=== PATIENT | female | born 1965 | race Caucasian/White ===

== ENCOUNTER 2017-09-23 09:34 | Outpatient (CLI) | payer BC | END 2017-09-23 09:35 | disposition home or self-care (01) | LOC: BICMAMMO 09:34 | PROVIDERS: ATTEND Family Medicine | DX: Z12.31 Encounter for screening mammogram for malignant neoplasm of breast (principal); Z85.820 Personal history of malignant melanoma of skin | CPT/HCPCS: 77063; 77067 ==

== ENCOUNTER 2018-09-26 09:22 | Outpatient (CLI) | payer BC | END 2018-09-26 09:23 | disposition home or self-care (01) | LOC: BICMAMMO 09:22 | PROVIDERS: ATTEND Family Medicine | DX: Z12.31 Encounter for screening mammogram for malignant neoplasm of breast (principal); R92.8 Other abnormal and inconclusive findings on diagnostic imaging of breast; Z85.820 Personal history of malignant melanoma of skin | CPT/HCPCS: 77063; 77067 ==

== ENCOUNTER 2018-09-29 09:22 | Outpatient (CLI) | payer BC ==
--- NOTE | 2018-09-29 16:55 | ULT ---
LEFT BREAST ULTRASOUND 09/29/18 COMPARISON: Mammogram 09/29/18, 09/26/18. HISTORY: Architectural distortion seen in the 12 o'clock position of the left breast on screening mammography and diagnostic mammography. TECHNIQUE: Multiplanar claudio scale and color doppler images were obtained in a targeted ultrasound of the left br east. FINDINGS: No suspicious shadowing or architectural distortion are seen in the left breast. No solid masses are seen. IMPRESSION: The area of architectural distortion was not able to be seen with ultrasound. BIRADS 0: Incomplete: Need Additional Imaging Evaluation and/or Prior Mammograms for Comparison An MRI is recommended to evaluate for abnormal enhancement in this region of potential architectural distortion. POS: RODRIGUEZ
== END 2018-09-29 09:23 | disposition home or self-care (01) ==
LOC: BICMAMMO 09:22
PROVIDERS: ATTEND Family Medicine
DX: N63.20 Unspecified lump in the left breast, unspecified quadrant (principal); Z85.820 Personal history of malignant melanoma of skin
CPT/HCPCS: G0279

== ENCOUNTER 2018-10-17 08:20 | Outpatient (CLI) | payer BC ==
--- NOTE | 2018-10-17 10:49 | MRI ---
MRI BILATERAL BREASTS WITH AND WITHOUT CONTRAST: COMPARISON: Mammogram and ultrasound from 09/29/2018. Mammograms from 09/26/2018 and 09/23/2017. TECHNIQUE: Multiplanar, multisequence MR images were obtained of the bilateral breasts with and without IV contr ast. This exam is evaluated on the [facility] work station, and 3D MIP reformats and contrast-enhanced curves were generated on the [facility] work station. FINDINGS: Scattered fibroglandular breast tissue is present. No significant background parenchymal enhancement is seen. In the central aspect of the left breast, there is a 5 mm area of high T2 signal and enhan cement. This enhancement is type II plateau-type enhancement and corresponds to the mammographic abn ormality. This lesion is actually closer to the medial aspect of the breast, at approximately the 9 o'clock position rather than the 12 o'clock position, where the ultrasound was performed. No other abnormal area of enhancement is seen in either breast. No axillary adenopathy is seen. No internal mammary lymph nodes are identified. The visualized anterior liver and osseous structures are unremarkable. IMPRESSION: There is a suspicious enhancing nodule in the left breast, which corresponds to the mammographic abno rmality. BI-RADS category 4-Suspicious abnormality. A biopsy is recommended. A second look ultraso und at the 9 o'clock position of the left breast should be performed to evaluate for this 5 mm mass. If this lesion cannot be seen with seen with a second look ultrasound, then an MRI guided biopsy noe l need to be performed. POS: RODRIGUEZ
[2018-10-17] MEDS ORDERED: Gadobenate Dimeglumine 529 MG/1 ML (20ML VIAL) ONE (12:51)
== END 2018-10-17 08:21 | disposition home or self-care (01) ==
LOC: BICMRI 08:20
PROVIDERS: ATTEND Family Medicine
DX: R92.8 Other abnormal and inconclusive findings on diagnostic imaging of breast (principal)
CPT/HCPCS: 82565; A9577; C8908

== ENCOUNTER 2020-05-23 07:22 | Outpatient (CLI) | payer BC, OTHER ==
[2020-05-23 11:31] LABS: Hemoglobin 13.7 g/dL (12.0-16.0); Mean Corpuscular HGB CONC 32.2 g/dL (32.0-36.0); Mean Corpuscular Hemoglobin 28.4 pg (27.0-31.0); Mean Corpuscular Volume 88.3 fL (78.0-98.0); Mean Platelet Volume 8.5 fL (7.4-10.4); Platelet Count 351 thou/uL (130-400); RBC Distribution Width 12.5 % (11.5-14.5); Red Blood Cell (RBC) Count 4.82 mill/uL (4.20-5.40); White Blood Cell (WBC) Count 5.7 thou/uL (4.8-10.8)
[2020-05-23 17:50] LABS: SARS-CoV-2 MS2 Positive; SARS-CoV-2 N Gene Negative; SARS-CoV-2 S Gene Negative; SARS-CoV-2 by NAA Not Detected (NotDetected); SARS-CoV-2 orf1ab Negative
== END 2020-05-23 07:23 | disposition home or self-care (01) ==
LOC: LABBT 07:22
PROVIDERS: ATTEND Obstetrics & Gynecology
DX: Z01.812 Encounter for preprocedural laboratory examination (principal); Z20.828 Contact with and (suspected) exposure to other viral communicable diseases; N92.0 Excessive and frequent menstruation with regular cycle; Z85.3 Personal history of malignant neoplasm of breast
CPT/HCPCS: 85027; 87635; U0003

== ENCOUNTER 2020-05-27 05:58 | Day surgery (SDC) | payer BC ==
[2020-05-23 10:21] VITALS: BMI 45.4
[2020-05-27] MEDS ORDERED: Bupivacaine HCl 0.5%/Epinephrine 1:200,000/PF 30 ml Vial ONE ×2 (06:31→09:09)
[2020-05-27] MEDS ORDERED: Methylene Blue 50 MG/10 ML AMPUL ONE (06:31)
[2020-05-27] MEDS ORDERED: Fentanyl 100 MCG/2 ML VIAL ONE ×2 (06:33→11:07)
[2020-05-27] MEDS ORDERED: HYDROmorphone 0.5 MG/0.5 ML SYRINGE ONE (06:33)
[2020-05-27] MEDS ORDERED: Famotidine/PF 20 mg/2ml Vial ONE (06:35)
[2020-05-27] MEDS ORDERED: CeleCOXIB 100 MG CAP ONE (06:35)
[2020-05-27] MEDS ORDERED: Gabapentin 300 MG CAP ONE (06:35)
[2020-05-27] MEDS ORDERED: Midazolam HCl 2 mg/2 ml Vial ONE (07:24)
[2020-05-27] MEDS ORDERED: Ropivacaine 0.2% 550 ML 750 ML NERVE BLCK SCH (08:30)
[2020-05-27] MEDS ORDERED: Ropivacaine HCl/PF 750 ML in Premix Bag 1 BAG NERVE BLCK SCH (09:15)
[2020-05-27] MEDS ORDERED: Meperidine HCl/PF 25 MG/ML VIAL SLOW IVP PRN (09:48)
[2020-05-27] MEDS ORDERED: Ketorolac Tromethamine 30 MG/ML VIAL IVP PRN (09:48)
[2020-05-27] MEDS ORDERED: Promethazine HCl 25 MG/ML VIAL SLOW IVP PRN (09:48)
[2020-05-27] MEDS ORDERED: Ondansetron HCl/PF 4 MG/2 ML Vial IVP PRN (09:48)
[2020-05-27] MEDS ORDERED: HYDROmorphone 2 MG/ML VIAL SLOW IVP PRN (09:48)
[2020-05-27] MEDS ORDERED: Morphine 4 MG/ML VIAL SLOW IVP PRN (10:17)
[2020-05-27] MEDS ORDERED: traMADol HCl 50 MG TAB PO PRN (10:17)
[2020-05-27] MEDS ORDERED: Bisacodyl 10 MG SUPP PR PRN (10:17)
[2020-05-27] MEDS ORDERED: Ondansetron PF 4 MG/2 ML Vial IVP PRN (10:17)
[2020-05-27] MEDS ORDERED: diphenhydrAMINE 25 MG CAP PO PRN (10:17)
[2020-05-27] MEDS ORDERED: Simethicone Chewable 80 MG TAB PO PRN (10:17)
[2020-05-27] MEDS ORDERED: Promethazine HCl 25 MG/ML VIAL IM PRN (10:17)
[2020-05-27] MEDS ORDERED: HYDROcodone/Acetaminophen 5/325 mg Tablet PO PRN ×2 (10:17)
[2020-05-27] MEDS ORDERED: Zolpidem Tartrate 5 MG TAB PO PRN (10:17)
[2020-05-27] MEDS ORDERED: SUGAMMADEX SODIUM 200 MG/2 ML VIAL ONE (10:30)
[2020-05-27] MEDS ORDERED: Sodium Chloride 0.9% 1,000 ML IV SCH (10:30)
[2020-05-27] MEDS ORDERED: Rocuronium Bromide 10 MG/ML (10ML VIAL) ONE (10:47)
[2020-05-27] MEDS ORDERED: PROPOFOL 200 MG/20 ML VIAL ONE (10:47)
[2020-05-27] MEDS ORDERED: Lidocaine 1% PF 5 ML VIAL ONE (10:47)
[2020-05-27] MEDS ORDERED: Ondansetron PF 4 MG/2 ML Vial ONE ×2 (10:47→16:29)
[2020-05-27] MEDS ORDERED: Dexamethasone 20 MG/5 ML VIAL ONE (10:47)
[2020-05-27] MEDS ORDERED: Succinylcholine Chloride 20 MG/ML 10 ml SYRINGE FS ONE (10:47)
[2020-05-27] MEDS ORDERED: EPHEDRINE 25 MG/5 ML SYRINGE ONE (10:47)
[2020-05-27] MEDS ORDERED: Glycopyrrolate 0.2 MG/ML 5 ML SYRINGE ONE (10:47)
[2020-05-27] MEDS ORDERED: HYDROmorphone 2 MG/ML VIAL ONE (11:40)
[2020-05-27] MEDS ORDERED: Ketorolac Tromethamine 30 MG/ML VIAL IVP SCH (12:00)
[2020-05-27] MEDS ORDERED: HYDROcodone/Acetaminophen 5/325 mg Tablet ONE (13:28)
--- NOTE | 2020-05-27 16:27 | OP ---
DATE OF PROCEDURE: 05/27/2020 PREOPERATIVE DIAGNOSES: 1. Personal history of breast cancer. 2. History of menorrhagia. POSTOPERATIVE DIAGNOSES: 1. Personal history of breast cancer. 2. History of menorrhagia. PROCEDURES PERFORMED: Robotic-assisted total laparoscopic hysterectomy with bilateral salpingo-oophorectomy and ON-Q pump placement. SURGICAL LEAD: Sheila Carrasquillo PA-C. COMPLICATIONS: None. ESTIMATED BLOOD LOSS: 75 mL. ANESTHESIA: GETA. OPERATIVE FINDINGS: 1. Obesity. 2. Normal-appearing cervix and vaginal mucosa at the start of the case. 3. Enlarged uterus with normal fallopian tubes, and bilaterally normal-appearing ovaries. 4. Surgical cuff hemostatic. 5. Small 1.5 cm perineal laceration at the vaginal mucosa repaired at the end of the case. PROCEDURE IN DETAIL: The patient was taken back to the OR with IV fluids running. Once she was in the OR, general anesthesia was obtained. The patient was placed in dorsal supine position with the arms tucked at her side and her legs in low dorsal lithotomy position. The abdomen and vagina were prepped and draped in normal fashion for a laparoscopic hysterectomy. Surgeons were gowned and gloved. The bladder was drained and attached to a Nilam syringe for bladder manipulation during the case. An operative speculum was placed into the vagina with the cervix easily identified and grasped with a single-tooth tenaculum. The uterine sound was passed through the cervix and the uterus sounded to 8 cm. A [employer] manipulator was assembled with a 4 cm cup and an 8 cm tip and placed into the uterus and vagina in routine fashion for hysterectomy. The surgeon's gloves were changed and the attention was turned to the laparoscopic portion of the case. Beginning at the supraumbilical fold, local anesthesia was placed underneath the skin. A 12 mm skin incision was made with a scalpel. The subcutaneous tissue was bluntly dissected with a hemostat and a Veress needle was placed through this incision into the peritoneal cavity. Once the peritoneum was reached, it was insufflated without difficulty. The Veress needle was then removed. A 12 mm trocar was placed through the distended abdomen through the 12 mm skin incision without difficulty. The laparoscope was then placed through this trocar with the above findings noted. The patient was then placed in Trendelenburg position and in similar fashion, an 8 mm right lower quadrant and left lower quadrant ports were placed, a right upper quadrant 11 mm port was placed all under direct visualization without difficulty. When all 4 ports were placed, the robot was docked to the patient's bedside. The instruments were placed under direct visualization through the trocars and the anatomy was inspected. Beginning on the patient's left side, the left adnexa was grasped and elevated away from the pelvic sidewall. The left ureter was noted to be running away from the IP ligament. The IP ligament was cauterized and transected using a combination of bipolar and monopolar cautery on the patient's right side. The left ovary and the left tube were transected from the left pelvic sidewall and remained attached to the uterus. Once the ovary and fallopian tube were dissected away from the pelvic sidewall, the left round ligament was cauterized and transected. The round ligament on the patient's left side was then dissected down through the broad ligament to the level of the uterine artery. The bladder was backfilled and the bladder flap was created using fine dissection technique with the bladder dissected away from the cervix. The uterine artery was further cauterized. It was then transected after the blood supply was controlled on the patient's left side. Attention was turned to the contralateral side. In similar fashion, the right fallopian tube and ovary were cauterized and transected allowing them to fall away toward the uterus and away from the pelvic sidewall. The right ureter was easily identified and noted to be away from the planned surgical sites. The round ligament on the patient's right side was cauterized, transected, and divided into anterior and posterior leaves. It was dissected down towards the level of the uterine artery as well. The bladder flap was completed from the patient's right side towards the midline and the bladder was completely dissected away from the planned hysterotomy site. The cervicovesical fascia was dissected as needed to ensure bladder safety for the colpotomy. The uterine artery on the patient's right side was cauterized and transected. The colpotomy was performed circumferentially using monopolar scissors. The cervix, uterus, tubes, and ovaries specimen was then retracted into the vagina. The surgical sites and the vaginal cuff were copiously irrigated and dried. Any small areas of bleeding around the vaginal cuff were controlled with bipolar cautery. A Stratafix suture was placed under direct visualization into the pelvis and the vagina was closed in a running fashion and in 2 layers. Once the vaginal cuff closure was complete, the vaginal cuff and surgical pedicles were again irrigated and suctioned dry. No areas of bleeding were noted. The pressure was dropped down to 8 mmHg with no evidence of bleeding noted. An ON-Q catheter tip was placed through the subcutaneous tissue and drawn down into the pelvis. It was primed with Marcaine. The trocars were then removed. The counts were correct and the gas was released from the abdomen. The supraumbilical port site was closed at the fascial layer with Vicryl suture. All 4 skin incisions were closed with Monocryl suture and dressed with Dermabond dressing. At the end of the case, the vagina was inspected with a small area of bleeding noted just at the introitus in the midline of the perineum, it was inspected and a small tear in the vaginal mucosa was noted. This tear was inherent to the procedure and occurred during removal of the enlarged uterine specimen from the vagina. A chromic suture was used in a running fashion to reapproximate this approximate 1.5 cm vaginal mucosal tear. Hemostasis was noted after reapproximation of the tissue. The patient was then cleaned, dried, extubated, and transferred to recovery room in good condition. The counts were correct. There were no complications. Job ID: [id number]
--- NOTE | 2020-05-27 18:03 | EKG ---
Test Reason : PREOP Blood Pressure : / mmHG Vent. Rate : 073 BPM Atrial Rate : 073 BPM P-R Int : 166 ms QRS Dur : 088 ms QT Int : 400 ms P-R-T Axes : 052 004 025 degrees QTc Int : 440 ms Normal sinus rhythm Normal ECG Confirmed by DR. Sara NERI ([id number]) on 05/27/2020 6:03:23 PM Referred By: STELLA Confirmed By:DR. Sara NERI
[2020-05-27] MEDS ORDERED: Venlafaxine HCl XR 75 MG CAP PO SCH (21:00)
[2020-05-27] MEDS ORDERED: Lisinopril 10 MG TAB PO SCH (21:00)
[2020-05-28] MEDS ORDERED: Ibuprofen 800 MG TAB PO SCH (06:00)
[2020-05-28] MEDS ORDERED: Loratadine 10 MG TAB PO SCH (09:00)
[2020-05-28] MEDS ORDERED: Fish Oil 1,000 MG CAP PO SCH (09:00)
[2020-05-28] MEDS ORDERED: Multivit, Therapeutic 1 TAB PO SCH (09:00)
[2020-05-28] MEDS ORDERED: Cholecalciferol 1,000 UNITS (25 MCG) TAB PO SCH (09:00)
[2020-05-28] MEDS ORDERED: GRAPE SEED PO SCH (09:00)
[2020-05-28] MEDS ORDERED: [UNRECOGNIZED DRUG - OTHER] PO SCH (09:00)
[2020-05-28] MEDS ORDERED: SOURCHERRY PO SCH (09:00)
[2020-05-28] MEDS ORDERED: CELERY PO SCH (09:00)
== END 2020-05-27 19:41 | disposition home or self-care (01) ==
LOC: SDC 05:58
PROVIDERS: ATTEND Obstetrics & Gynecology
PROC: 0UT74ZZ Resection of Bilateral Fallopian Tubes, Percutaneous Endoscopic Approach (ICD-10-PCS; principal; 2020-05-27)
PROC: 0UT24ZZ Resection of Bilateral Ovaries, Percutaneous Endoscopic Approach (ICD-10-PCS; principal; 2020-05-27)
PROC: 0UT94ZZ Resection of Uterus, Percutaneous Endoscopic Approach (ICD-10-PCS; principal; 2020-05-27)
DX: N84.0 Polyp of corpus uteri (principal); N83.02 Follicular cyst of left ovary; N83.01 Follicular cyst of right ovary; F41.9 Anxiety disorder, unspecified; I10 Essential (primary) hypertension; G47.30 Sleep apnea, unspecified; E66.9 Obesity, unspecified; Z68.42 Body mass index [BMI] 45.0-49.9, adult; Z85.3 Personal history of malignant neoplasm of breast
CPT/HCPCS: 86850; 86900; 86901; 88307; 93005; 93010; J0690; J1100; J1170; J2250; J2405; J2704; J2795; J3010; Q9968; S0028